=== PATIENT | female | born 1955 ===

== ENCOUNTER 2020-06-02 09:15 | Inpatient (IN) | payer OTHER ==
[~2020-06-02] VITALS: Ht 162.6 cm; Wt 62.1 kg
[2020-06-02] MEDS ORDERED: PRILOSEC OTC20 MG PO (11:09)
[2020-06-02] MEDS ORDERED: FIORICET PO (11:10)
[2020-06-09] MEDS ORDERED: PRILOSEC OTC20 MG PO (08:31)
[2020-06-09] MEDS ORDERED: OXYC1TAB9 PO (08:31)
== END 2020-06-09 09:08 | disposition home or self-care (01) | DRG 331 ==
LOC: O/R 06-05 07:31 → SURH 06-05 07:31 → O/R 06-05 09:15 → SURH 06-05 13:37
PROVIDERS: ADMIT Surgery; ATTEND Surgery
PROC: 0DTF4ZZ Resection of Right Large Intestine, Percutaneous Endoscopic Approach (ICD-10-PCS; principal; 2020-06-05 12:00)
DX: D12.2 Benign neoplasm of ascending colon (principal)

== ENCOUNTER 2020-06-25 10:05 | Emergency (ER) | payer OTHER ==
[~2020-06-25] VITALS: Ht 162.6 cm; Wt 59.0 kg
[~2020-06-25 10:05] MED LIST: FIORICET PO; OXYC1TAB9 PO; PRILOSEC OTC20 MG PO
[2020-06-25] MEDS ORDERED: LEVSIN/SL0.125 MG SL (13:00)
[2020-06-25] MEDS ORDERED: PEPCID20 MG PO (13:00)
== END 2020-06-25 13:24 | disposition home or self-care (01) ==
LOC: ER 10:05
DX: K59.09 Other constipation (principal); K29.70 Gastritis, unspecified, without bleeding; R10.31 Right lower quadrant pain

== ENCOUNTER 2021-01-12 09:40 | Emergency (ER) | payer OTHER ==
[~2021-01-12] VITALS: Ht 162.6 cm; Wt 59.4 kg
[~2021-01-12 09:40] MED LIST changes: +LEVSIN/SL0.125 MG SL; +PEPCID20 MG PO
[2021-01-12] MEDS ORDERED: DICY20TA PO (22:26)
[2021-01-12] MEDS ORDERED: PEPCID AC20 MG PO (22:26)
== END 2021-01-12 22:30 | disposition home or self-care (01) ==
LOC: ER 09:40
DX: K80.20 Calculus of gallbladder without cholecystitis without obstruction (principal); R10.84 Generalized abdominal pain; R11.11 Vomiting without nausea

== ENCOUNTER 2021-07-07 10:12 | Day surgery (SDC) | payer OTHER ==
[~2021-07-07 10:12] MED LIST changes: +DICY20TA PO; +PEPCID AC20 MG PO
== END 2021-07-07 13:30 | disposition home or self-care (01) ==
LOC: AMB-ENDOS 10:12
PROVIDERS: ATTEND Surgery
DX: D12.4 Benign neoplasm of descending colon (principal); K64.8 Other hemorrhoids; Z20.822 Contact with and (suspected) exposure to COVID-19